=== PATIENT | male | born 1985 | race African-American/Black ===

== ENCOUNTER 2018-03-02 22:22 | Emergency (ER) | payer MEDICAID ==
[~2018-03-02] VITALS: Ht 188 cm; Wt 116.8 kg
[~2018-03-02 22:22] MED LIST: DIVA-78 PO; LITH600 PO; QUET200T PO
[2018-03-02] MEDS ORDERED: ARIP5TAB8 PO (22:35)
[2018-03-03] VITALS: BP 127/88
[2018-03-03] MEDS ORDERED: POVIDONE-IODINE 10% 120 ML SOLUTION TP ONE (00:30)
== END 2018-03-03 01:00 | disposition home or self-care (01) ==
LOC: EMS 22:22
DX: S90.821A Blister (nonthermal), right foot, initial encounter (principal); S90.822A Blister (nonthermal), left foot, initial encounter; F17.210 Nicotine dependence, cigarettes, uncomplicated; F20.9 Schizophrenia, unspecified; F31.9 Bipolar disorder, unspecified; F12.90 Cannabis use, unspecified, uncomplicated; Z79.899 Other long term (current) drug therapy; Z88.0 Allergy status to penicillin; X58.XXXA Exposure to other specified factors, initial encounter; Y93.89 Activity, other specified; Y92.89 Other specified places as the place of occurrence of the external cause; Y99.8 Other external cause status
CPT/HCPCS: 99406

== ENCOUNTER → 2018-04-12 | Emergency (ER) | payer MEDICAID ==
[~2018-04-12] VITALS: Ht 185.4 cm; Wt 102.3 kg
[~2018-04-12] MED LIST changes: +ARIP5TAB8 PO; -DIVA-78 PO; -LITH600 PO; -QUET200T PO; +TRAZ150 PO
[2018-04-12 19:41] VITALS: BP 139/88
[2018-04-12 20:12] LABS: APPEARANCE,URINE CLOUDY (CLEAR); BILIRUBIN,URINE NEGATIVE (NEGATIVE); GLUCOSE, URINE (UA) NEGATIVE (NEGATIVE); KETONES,URINE NEGATIVE (NEGATIVE); LEUKOCYTE ESTERASE ,URINE NEGATIVE (NEGATIVE); NITRATE,URINE NEGATIVE (NEGATIVE); OCCULT BLOOD,URINE NEGATIVE (NEGATIVE); PH,URINE 7.5 (5.0-8.0); PROTEIN,URINE NEGATIVE (NEGATIVE); UROBILINOGEN,URINE 0.2 mg/dL (<=1.0)
== END | disposition home or self-care (01) ==
LOC: EMS 18:31
DX: K40.90 Unilateral inguinal hernia, without obstruction or gangrene, not specified as recurrent (principal); F31.9 Bipolar disorder, unspecified; F20.9 Schizophrenia, unspecified; F17.210 Nicotine dependence, cigarettes, uncomplicated; F15.90 Other stimulant use, unspecified, uncomplicated; Z88.0 Allergy status to penicillin; Z79.899 Other long term (current) drug therapy

== ENCOUNTER 2018-05-19 11:30 | Emergency (ER) | payer MEDICAID ==
[~2018-05-19] VITALS: Ht 182.9 cm; Wt 113.6 kg
[2018-05-19] MEDS ORDERED: IBUPROFEN 600 MG TABLET PO ONE (13:00)
[2018-05-19 14:22] VITALS: BP 132/68
== END 2018-05-19 16:35 | disposition left against medical advice (07) ==
LOC: EMS 11:32
DX: S60.441A External constriction of left index finger, initial encounter (principal); F17.210 Nicotine dependence, cigarettes, uncomplicated; F31.9 Bipolar disorder, unspecified; F20.9 Schizophrenia, unspecified; F12.90 Cannabis use, unspecified, uncomplicated; Z88.0 Allergy status to penicillin; W49.04XA Ring or other jewelry causing external constriction, initial encounter; Y93.89 Activity, other specified; Y92.89 Other specified places as the place of occurrence of the external cause; Y99.8 Other external cause status
CPT/HCPCS: 99406